=== PATIENT | female | born 1990 | race Caucasian/White ===

== ENCOUNTER 2022-05-20 10:45 | Day surgery (SDC) | payer SELFPAY ==
--- NOTE | 2022-05-19 14:33 | PCM.HP.BLA ---
History and Physical Intake Vital Signs ? 04/05/2213:08 Height 5 ft 6 in Weight: 157 lb 6 oz BMI 25.4 BP 114/73 Intake Visit Reasons:?Tubal Ligation consult [employer] Required: No Is patient in pain?: No Allergies No Known Allergies Allergy (Unverified 04/05/22 13:08) Medications NK? 04/05/22 [History Confirmed 04/05/22] Post menopausal: No Patient : No PFSH Surgical History?(Updated 04/05/22 @ 13:09 by Kathy Waters) S/P S/P dilation and curettage Social History?(Updated 04/05/22 @ 13:09 by Kathy Waters) Smoking Status:? Never smoker alcohol intake:? never substance use type:? does not use additional social history:? - Marcos ? HPI Tubal Ligation consult Details: PETRONA CASTILLO is a 32 year old who presents for consultation for sterilization she has had multiple children and is having worsening varicose veins and therefore is wanting sterilization. Female Reproductive History Menopausal Symptoms: No night sweats History ? ? ? 10 ? Elective abortions ? Hx Para ? ? ? 8 ? Spontaneous abortions ? Hx # Term Pregnancies ? Ectopic pregnancies ? Hx # Pregnancies ? Multiple births ? # of living children ? Past Pregnancies Del. Date Name GA/Weeks Outcome Route Bth Weight Gen Labor Lgth Anesthesia Del Locatn Provider FOB Unknown David ? Unknown Timoteo ? Unknown Jose ? Unknown Chaparro ? Unknown Amber ? Unknown Zeferino ? Unknown Nidhi ? Unknown Suzie ? ROS Const Constitutional: Denies fatigue, night sweats, weight gain or weight loss ENT ENT: Reports system reviewed and no additional complaints, except as documented Cardio Card: Denies chest pain Resp Resp: Denies cough or dyspnea GI GI: Reports as per HPI; Denies abdominal pain, constipation, nausea or vomiting : Denies nipple discharge, urinary frequency, urinary incontinence, urinary hesitancy, urinary urgency, vaginal discharge, vaginal dryness, vaginal odor or vaginal pruritus Musc Musc: Denies arthralgias, back pain or muscle weakness Skin Skin/Breast: Denies alopecia, change in hair, dry skin, breast mass, breast pain, breast skin changes or nipple discharge Neuro Neuro: Reports system reviewed and no additional complaints, except as documented Psych Psych: Reports system reviewed and no additional complaints, except as documented Endo Endo: Denies cold intolerance, excessive sweating, heat intolerance or polydipsia Felipe/Lymph Hematologic/Lymphatic: Denies easy bleeding, Denies easy bruising and Denies lymphadenopathy Exam Const General: cooperative, healthy appearing, comfortable, no acute distress and well developed Orientation: alert [facility] Head: normal to inspection and normocephalic Ears: hearing grossly normal bilaterally and external ears normal Nose: external nose normal and nares normal Face and sinus: normal facial exam Neck Neck: normal visual inspection and no lymphadenopathy Thyroid: thyroid normal Chest Chest palpation & inspection: normal inspection of the chest Resp Effort & Inspection: normal respiratory effort Auscultation: clear to auscultation bilaterally Cardio Rate: regular rate Rhythm: regular rhythm Heart Sounds: S1 normal and S2 normal GI Inspection: normal to inspection and non-distended Palpation: soft and no hepatosplenomegaly Musc Other: gross motor intact no deficits, full bilateral strength Skin General: no rashes or lesions noted Neuro General: patient alert, patient awake, moves all extremities and no focal motor deficits Motor: muscle tone normal throughout Extrem General: normal to inspection and no pedal edema Psych Appearance: grossly normal Mental Status: mental status grossly normal Affect: normal affect Speech and Movement: speech and movement normal Coding Level of Care Code No Charge Diagnoses Sterilization? Z30.2 Assessment and Plan Assessment and Plan (1) Sterilization: ?Status:?Acute ?Comment: lap tubal filshie Plan After discussing the patient's diagnosis and treatment plan options, patient wishes to proceed with surgical management.? I have discussed with the patient the risks, benefits, and alternatives of the procedure which include but are not limited to risks of anesthesia, bleeding, infection, possible damage to bowel, bladder, or surrounding vasculature which could lead to additional surgery to evaluate any complications.? Patient agrees to procedure and wishes to proceed.? ACOG/uptodate references given for additional information regarding procedure.? UPDATE- I have seen the patient and performed any clinically relevant updates to the history and physical exam. Priscila Lombardo MD
[2022-05-20] VITALS (9 sets, daily range): BP systolic 101–118; BP diastolic 60–87; PULSE 50–68; RESP 14–18; TEMP 36.2–37.3; O2SAT 98–100; BMI 24.5
[2022-05-20 11:15] LABS: Internal QC Validated? YES +Cl - CLEAR BKGD; Pregnancy, Urine Negative Negative
[2022-05-20] MEDS: Lactated Ringers 1,000 ML 15 ML IV (11:41)
[2022-05-20 11:46] LABS: Hematocrit 39.7 % (37-47); Hemoglobin 12.7 g/dL (12.0-15.0); Mean Corpuscular Hgb 32.1 pg (27.0-32.0); Mean Corpuscular Volume 100.3 fL (81-99); Platelet Count 211 K/mm3 (150-450); RBC Distribution Width CV 12.1 % (11.6-14.6); RBC Distribution Width SD 44.7 fl (35.1-43.9); Red Blood Count 3.96 M/mm3 (4.2-5.4)
--- NOTE | 2022-05-20 13:31 | OP.PCM_ITS ---
Problems Associated Problem List Diagnoses (1) Sterilization: Report of Operation Date of Procedure: 05/20/22 Pre-Operative Diagnosis: see problem list Post-Operative Diagnosis: same Surgery/Procedure Performed:: laparoscopic bilateral tubal occlusion filshie clips Description of Surgical Findings:: nl uterus tubes ovaries Type of Anesthesia: General and Local Specimen's removed: tubes Drains: none Estimated Blood Loss (mL): 50 Fluids Replaced: crystalloid Description of Procedure: Patient was taken in the operating room and was placed under general anesthesia was prepped and draped in normal sterile fashion in the dorsal lithotomy position. Bladder was drained of clear urine and SCDs were on preoperatively. Uterus was sounded and a uterine manipulator was placed after dilating. Attention was then paid to the abdominal portion of the procedure and the umbilicus was elevated with towel clamps and injected with Marcaine and after a 5 mm incision was made and the Veress needle was entered into the abdomen c onfirmed to be intra-abdominal with a low opening pressure of less than 5 mmHg. Abdomen was insufflated with CO2 gas and a 5 mm optical trocar was placed under direct visualization. A 5 mm port suprapubically was placed under direct visualization. Uterus was well visualized and bilateral fallopian tubes identified and filshie clip applied bilaterally across the entire mid interstitial portion of the fallopian tube. Excellent hemostasis was noted. All instruments removed from the abdomen after gas was desufflated. Port sites were closed with 3-0 Monocryl Steri's and op sites were applied. All instruments removed from the vagina and patient was awoken and taken recovery in stable condition. Grafts/Implants Used: none Complications none Admit VTE Documentation VTE Present on Admission: No VTE Mechan Device Prophylaxis: SCD's Multi Select Codes Urinary/Genital Urinary/Genital CPT Codes: 41381 OCCLUDE FALLOPIAN TUBE BY DEVICE
--- NOTE | 2022-05-20 13:33 | DCINST_ITS ---
Discharge Instructions Diet Discharge Diet: No restrictions Activity Discharge Activity: Return to Normal Activity, May Drive (when pain free) and May Shower May resume sexual activity in: 1 week Weight Bearing Status: Full weight bearing Lifting Restrictions: 30 lbs for 2 weeks Dressing / Incision Call your doctor if your incision/area has: Continuous Slow Oozing, Sudden Increased Bleeding, Increased Pain/ Swelling, Increased Redness and Foul Smelling Discharge Call your doctor if you observe: Fever of 101 or Higher, Using more than 1 pad per hour, Shortness of breath, Chest pain and Uncontrolled pain Suture Line Care: Avoid Pulling/Pushing and Avoid Pinching/Bending Remove Dressing in: 1 week (if present) Cleanse incision/area with: Soap & Water and Keep Dressing Clean & Dry Follow Up Care Please Follow Up With: Priscila Lombardo MD When: Call to make an appointment with your doctor for a postop visit in 2 weeks Test Results: Test results from this visit will be discussed in further detail at your follow- up appointment, if applicable. Discharge Plan Admission Attending Provider: Priscila Lombardo Primary Care Provider: Bijan Crane Discharge Orders/Prescriptions Prescriptions: New oxycodone-acetaminophen [Percocet] 5-325 mg tablet 1 tab PO Q6H PRN (Reason: pain) 4 Days Qty: 10 0RF naproxen [naproxen] 500 mg tablet 500 mg PO BID PRN PRN (Reason: Pain) Qty: 30 1RF No Action multivitamin Tablet 1 tab PO DAILY Referrals / Follow Up: Bijan Crane DO [Primary Care Provider] - Disposition Disposition (needs filled in before D/C Order can be placed): Home, Self Care
[2022-05-20] MEDS: Ondansetron 4 MG/2 ML Vial IM (15:45)
--- NOTE | 2022-05-21 15:24 | HP.PCM_ITS ---
HPI - General General Date of Admission: 05/20/22 HPI Narrative PETRONA CASTILLO, is a 32 F who presents for laparoscopic sterilization [facility] Medical History (Updated 05/13/22 @ 11:58 by Kaci Armstrong) History of edema History of perineal laceration Lactating mother Non-smoker Wears partial dentures Home Medications multivitamin 1 tab PO DAILY SUPPLEMENT 05/13/22 [History Last Taken 05/19/22] naproxen 500 mg tablet 500 mg PO BID PRN PRN Pain #30 tabs 05/20/22 [Rx Last Taken Unknown] oxycodone-acetaminophen 5 mg-325 mg tablet (Percocet) 1 tab PO Q6H PRN pain 4 days #10 tabs 05/20/22 [Rx Last Taken Unknown] Allergy/AdvReac Type Severity Reaction Status Date / Time No Known Allergies Allergy Verified 05/20/22 11:42 Surgical History (Updated 04/05/22 @ 13:09 by Kathy Waters) S/P S/P dilation and curettage Social History (Updated 04/05/22 @ 13:09 by Kathy Waters) Smoking Status: Never smoker alcohol intake: never substance use type: does not use additional social history: - Marcos Vital Signs Vital Signs Vital Signs: 05/20/22 15:41 05/20/22 16:35 Temperature 97.5 F L 98.7 F Temperature Source Temporal Temporal Pulse Rate 50 L 54 L Respiratory Rate 18 16 Blood Pressure 103/60 101/65 Blood Pressure Mean 74 77 Blood Pressure Source Monitor Monitor Blood Pressure Position Semi-Fowlers Blood Pressure Location Right Arm Right Arm Baseline BP 107/71 107/71 Pulse Ox 98 98 Oxygen Delivery Method Room Air Room Air Weight Weight: 69.127 kg Body Mass Index (BMI) 24.5 Results Lab / Micro Data Result Diagrams: 05/20/22 11:35 Assessment & Plan Assessment/Plan (1) Sterilization: PLAN: Plan plan lap tubal filshie After discussing the patient's diagnosis and treatment plan options, patient wishes to proceed with surgical management. I have discussed with the patient the risks, benefits, and alternatives of the procedure which include but are not limited to risks of anesthesia, bleeding, infection, possible damage to bowel, bladder, or surrounding vasculature which could lead to additional surgery to evaluate any complications. Patient agrees to procedure and wishes to proceed. ACOG/uptodate references given for additional information regarding procedure. UPDATE- I have seen the patient and performed any clinically relevant updates to the history and physical exam. Priscila Lombardo MD
== END 2022-05-20 16:38 | disposition home or self-care (01) ==
LOC: SDC 10:57 → AC 10:59
PROVIDERS: Anesthesiology; PCP Family Medicine; Referring Provider Obstetrics & Gynecology; Visit Provider Obstetrics & Gynecology
PROC: (CPT 58661; principal; 2022-05-20 12:15)
DX: Z30.2 Encounter for sterilization (principal)
CPT/HCPCS: 58671; 00851; 81025; 85027; 86850; 86900; 86901; J7120; J2405